=== PATIENT | female | born 1960 | race Caucasian/White ===

== ENCOUNTER 2020-08-13 16:04 | Emergency (ER) | payer MEDICAID, SELFPAY ==
[2020-08-13 16:32] VITALS: BP 154/89; PULSE 115; RESP 18; TEMP 37.6; O2SAT 95; BMI 26.4
--- NOTE | 2020-08-13 20:45 | ED.EYEPROB ---
HPI - Eye Problem General Chief complaint: Eye Problems Stated complaint: eye issue Time Seen by Provider: 08/13/20 19:57 Source: patient and family Mode of arrival: ambulatory Limitations: language barrier History of Present Illness HPI Narrative: Patient complaining of decreased vision both eyes more for the left side last few days been told that she has a cataract but has not got the surgery done also patient had some kind of surgery questionable retinal detachment of left eye few years ago also for last 3 days patient noticed slight redness of the eyes with clear clear discharge this patient has a left eye MD chief complaint: eye pain Onset (ago): day(s) Onset description: gradual Location: left eye Eye Symptoms: burning and redness Related Data Previous Rx's Medication Instructions Recorded tobramycin 2 drp OPHTHALMIC-LEFT Q4H #5 ml 08/13/20 Allergies Allergy/AdvReac Type Severity Reaction Status Date / Time Penicillins Allergy Rash Verified 08/13/20 16:32 Review of Systems Review of Systems: Constitutional : No Weight loss, No Fever, No Chills ENT/Mouth : No sore throat, No Rhinorrhea Eyes: + Eye Pain, No Swelling Cardiovascular : No Chest Pain, no palpitations Respiratory : No Cough, No Sputum, no shortness of breath Gastrointestinal : no Nausea, No Vomiting, No Diarrhea, No abdominal Pain, no black stools Genitourinary : No Dysuria, No Urinary Frequency Musculoskeletal : No joint pain, No Myalgias, No Joint Swelling Skin : No Skin Lesions, No rash Neuro : No Weakness, No Numbness, No Dizziness, No Headache Psych : No Anxiety/Panic, No Depression Heme/Lymph: No Bruising, No Lymphadenopathy Endocrine : No Polyuria, No Polydipsia All other systems reviewed and are negative PMFSH Social History Social History Smoked in Last 30 Days: No Use of substances other than those prescribed or required for medical reasons: No Any prior treatment program specific to substance use: No Advance Directives: No Advance Directives Information Provided: No Physical Exam Vital Signs: Vital Signs: Last Vital Signs Temp 99.7 F 08/13/20 16:32 Pulse 115 H 08/13/20 16:32 Resp 18 08/13/20 16:32 BP 154/89 H 08/13/20 16:32 Pulse Ox 95 08/13/20 16:32 Body Mass Index 26.4 Const: General: comfortable and no acute distress Orientation/consciousness: patient oriented x3 HENMT: Head: Yes normal to inspection Ears: hearing grossly normal bilaterally and TM's normal bilaterally General nose exam: Normal external nose present Face and sinus: Yes normal facial exam Mouth: Normal oral and palatal mucosa present Throat: Yes posterior oropharynx normal Eyes: Other: IOP 13 L eye, 15 in R eye General: appearance normal, both eyes and all related structures Alignment and Position: alignment normal Periorbital: periorbital findings normal Eyelids: Yes eyelids normal Conjunctivae: conjunctival abnormal (Injected) left Corneas: corneas normal Pupils: Equal, round and reactive pupils present EOM: EOMs intact bilaterally Direct Ophthalmoscopy: normal light reflex and other (Mature cataract bilateral left more than right ) Resp: Effort & Inspection: normal respiratory effort Auscultation: clear to auscultation bilaterally Cardio: Palpation: normal PMI Rate: regular rate Rhythm: regular rhythm Heart sounds: S1 normal heart sound present and S2 normal heart sound present Neuro: General: patient oriented x3, no focal motor deficits and CN's II-XI intact bilaterally Cranial nerves: Yes Equal, round and reactive pupils present MDM - Eye Problem MDM Narrative Medical decision making narrative: Patient with bilateral mature cataract left more than the right unable to see fundus clearly. Normal IOP patient advised to follow-up with Dr. Mae aircraft electrical systems specialist for cataract surgery Discharge Plan Discharge Clinical Impression: Conjunctivitis Qualifiers: Conjunctivitis type: acute Acute conjunctivitis type: unspecified Laterality: left Qualified Code(s): H10.32 - Unspecified acute conjunctivitis, left eye Cataract Qualifiers: Cataract type: age-related Age-related cataract type: unspecified Laterality: bilateral Qualified Code(s): H25.9 - Unspecified age-related cataract Patient Disposition: Home, Self-Care Instructions: Cataracts (ED), Conjunctivitis (ED) Additional Instructions: Use eye drops every 4 hours in left eye as advised. Follow-up with eye doctor for further evaluation including surgery for cataract Prescriptions: New tobramycin 0.3 % drops 2 drp ophthalmic-Left Q4H Qty: 5 RF: 0 Referrals: William Mae [Physician] - 3 days Print Language: Beninese
[2020-08-13] MEDS: Tobramycin Sulfate 0.3% Sol Op 5 ML BTL 2 DROP EYE-LEFT (21:23)
--- NOTE | 2020-08-13 21:25 | PC.NURSE ---
PT PRESSURE TO EYE CHECK AT BESIDE BY DR SANDERS.
== END 2020-08-13 21:18 | disposition home or self-care (01) ==
PROVIDERS: Emergency Provider Internal Medicine
DX: H10.32 Unspecified acute conjunctivitis, left eye (principal); H25.9 Unspecified age-related cataract; H57.13 Ocular pain, bilateral
CPT/HCPCS: 99283; 99284

== ENCOUNTER 2022-11-23 12:29 | Emergency (ER) | payer MEDICAID, SELFPAY ==
--- NOTE | 2022-11-23 07:15 | ECG_ITS ---
Test Reason : tachycardia Blood Pressure : / mmHG Vent. Rate : 120 BPM Atrial Rate : 120 BPM P-R Int : 160 ms QRS Dur : 070 ms QT Int : 332 ms P-R-T Axes : 065 015 073 degrees QTc Int : 469 ms Sinus tachycardia Nonspecific ST and T wave abnormality Abnormal ECG When compared to the previous EKG of Sinus tachycardia has replaced Supraventricular tachycardia Referred By: Yuriy Holloway Electronically Signed By:SHAILESH DAWKINS MD
[2022-11-23 12:40] VITALS: BP 143/107; PULSE 167; RESP 19; TEMP 36.6; O2SAT 97; BMI 27.4
--- NOTE | 2022-11-23 12:40 | ED.GENADULT ---
HPI - General Adult General Chief complaint: Arrhythmia/Palpitations Stated complaint: high blood pressure Time Seen by Provider: 11/23/22 12:53 Source: patient and family Mode of arrival: ambulatory Limitations: no limitations History of Present Illness HPI narrative: 62-year-old female with no major medical problems presents with palpitations and lightheadedness and anxiety. Symptoms started this morning when she woke. Symptoms are moderate to severe. She has never had these symptoms before. There is no clear relieving or exacerbating features. Family emerged root took blood pressure and heart rate. Blood pressure was noted to be low in her heart rate was rapid in the 160s. She denies any chest pain, shortness of breath. She denies any stimulant use or drug use. No history of cardiac dysrhythmia. She is currently not on any medications. Related Data Previous Rx's Medication Instructions Recorded tobramycin 0.3 % eye drops 2 drp ophthalmic-Left Q4H #5 mL 08/13/20 aspirin 325 mg tablet 325 mg PO DAILY #90 tabs 11/23/22 metoprolol tartrate 25 mg tablet 12.5 mg PO BID #14 tabs 11/23/22 Allergies Allergy/AdvReac Type Severity Reaction Status Date / Time Penicillins Allergy Rash Verified 11/23/22 12:39 Review of Systems Review of Systems: CONSTITUTIONAL: Denies weight loss, fever and chills. HEENT: Denies changes in vision and hearing. RESPIRATORY: Denies SOB and cough. CV: + palpitations - CP. GI: Denies abdominal pain, nausea, vomiting and diarrhea. : Denies dysuria and urinary frequency. MSK: Denies myalgia and joint pain. SKIN: Denies rash and pruritus. NEUROLOGICAL: Denies headache and syncope. PSYCHIATRIC: Denies recent changes in mood. + anxiety - depression. All other ROS are negative unless in HPI [facility] Social History Social History Advance Directives: No Physical Exam ED Vital Signs: Vital Signs - 24 hr 11/23/22 12:40 11/23/22 15:51 11/23/22 17:50 Temperature 98 F 98.3 F 98.6 F Pulse Rate 167 H 88 80 Respiratory Rate 19 16 16 Blood Pressure 143/107 H 145/91 H 152/93 H Pulse Oximetry 97 99 98 Oxygen Delivery Method Room Air Room Air Room Air BMI result Body Mass Index 27.4 GEN: Well developed, no acute distress, alert, oriented HEENT: Normocephalic, atraumatic, normal external ears, nose appears normal, no oropharyngeal edema or exudates Eyes: Normal to appearance Neck: Supple, no lymphadenopathy Respiratory: Talks in complete sentences, no respiratory distress, clear to auscultation bilaterally Cardiovascular: Regular rate and rhythm, no murmurs rubs or gallops, tachycardic Abdomen: Soft, nontender, nondistended, no guarding, no rebound Back: No CVA tenderness Extremities: No clubbing cyanosis or edema Neurologic: No focal neurologic deficits, cranial nerves 2-12 intact, strength is 5/5 bilaterally Skin: No rash Course Course Course Narrative: RME - 62 yo Latvian speaking female presents to the ER for evaluation of tachycardia, reading of 167 on home monitor. BP 120/80s at home. Patient reports heart agitation and palpitations that started this morning. HR 170 in triage, BP 140/107. No distress. Plan: to go to treatment room now. EKG, labs Reevaluation(s) Reevaluation #1: Patient received adenosine 6 mg, initially this did not work however, she subsequently went into a sinus tachycardia. This is followed by metoprolol 5 mg IV. Lab work is currently pending. Will continue to monitor patient. I expect patient will be able to discharge in follow-up with Cardiology. Reevaluation #2: Patient's heart rate remains appropriate at this time. Will run a 2nd set of cardiac enzymes to make sure that they are not dramatically increasing. If they do increase, would recommend a Cardiology consultation prior to possible discharge. I do not believe her troponin elevation is related to none stable plaque but rather a supply demand mismatch secondary to tachycardia. Patient was chest pain-free. Her only complaints are palpitations and anxiety. Time: 15:34 Medications Administered Discontinued Medications Generic Name Dose Route Start Last Admin Trade Name Chiq PRN Reason Stop Dose Admin Adenosine 6 mg 11/23/22 12:53 11/23/22 13:04 Adenosine 6 Mg/2 Ml Vial IVPUSH 11/23/22 12:54 6 mg STAT STA Administration Metoprolol Tartrate 5 mg 11/23/22 13:13 11/23/22 14:10 Metoprolol Tartrate 5 Mg/5 Ml Vial IVPUSH 11/23/22 13:14 5 mg ONCE ONE Administration Medical Decision Making Medical Decision Making [facility] Narrative: Patient presents with SVT. EKG shows a narrow sinus tachycardia. Differential includes SVT, AFib, a flutter, thyroid, electrolyte abnormality. Plan adenosine. Check laboratory results for any of the above diagnoses, observation, likely metoprolol following chemical cardioversion. There is no indication for electrical cardioversion at this time. Patient is otherwise stable. -I received sign-out from Dr. Holloway -we discussed with Cardiology the increase in troponin. Patient's heart rate in the 80s, blood pressure in the 150s systolic, patient asymptomatic, sinus rhythm. -recommendations per Cardiology: Metoprolol and aspirin and discharged home Differential Diagnosis Differential Diagnoses: The differential diagnosis associated with the presentation includes (See above) Admission/Observation Consideration of admission/observation: Escalation of care including admission/observation considered (Pending full workup.) Lab Data [facility] Lab Attestation statement: I reviewed the patient's lab results. 11/23/22 13:15 11/23/22 13:15 Labs: Lab Results 11/23/22 11/23/22 11/23/22 Range/Units 13:15 13:15 13:15 WBC 4.2 L (4.8-10.8) X10*3/uL RBC 4.46 (4.20-5.50) X10*6/uL Hgb 13.7 (12.0-16.0) g/dl Hct 41.9 (37.0-47.0) % MCV 93.9 (80.0-98.0) fL MCH 30.7 (27.0-33.0) pg MCHC 32.7 (31.0-35.0) g/dl RDW 12.2 (11.0-16.0) % Plt Count 314 (160-400) X10*3/uL MPV 9.4 (9.4-12.3) fL Immature Gran % (Auto) 0.2 (0.0-0.4) % Neut % (Auto) 51.2 (45-73) % Lymph % (Auto) 38.8 (20-40) % [place] % (Auto) 8.9 (2-11) % Eos % (Auto) 0.2 (0-4) % Baso % (Auto) 0.7 (0-2) % Lymph # (Auto) 1.6 (1.2-4.9) X10*3/uL [place] # (Auto) 0.4 (0.1-1.2) X10*3/uL Eos # (Auto) 0.0 (0.0-0.4) X10*3/uL Baso # (Auto) 0.0 (0.0-0.2) X10*3/uL Abs Immat Gran (auto) 0.01 (0.00-0.03) X10*3/uL Absolute Neuts (auto) 2.1 (2.0-8.3) x10*3/uL Absolute Nucleated RBC 0.000 (0.0-0.012) X10*3/uL Nucleated RBC % (auto) 0.0 (0.0-0.2) /100WBC Sodium 139 (135-145) mmol/L Potassium 3.4 (3.3-5.1) mmol/L Chloride 105 (96-108) mmol/L Carbon Dioxide 25 (22-29) mmol/L Anion Gap 12 (12-20) BUN 15 (9-16) mg/dL Creatinine 0.84 (0.5-1.4) mg/dL Estim Creat Clear Calc 62.0 Estimated GFR > 60 Random Glucose 123 H (60-115) mg/dL Calcium 9.8 (8.4-10.2) mg/dL Magnesium 2.2 (1.6-2.6) mg/dL Total Bilirubin 0.5 (0.0-1.0) mg/dL Direct Bilirubin 0.2 (0.0-0.5) mg/dL AST 19 (5-31) U/L ALT 21 (0-31) U/L Alkaline Phosphatase 76 (39-117) U/L Troponin I High Sens 17.2 H (<3.5-17.0) ng/L B-Natriuretic Peptide (<100) pg/mL Total Protein 8.1 H (6.5-8.0) g/dL Albumin 4.3 (3.5-5.0) g/dL TSH 0.67 (0.32-4.0) uIU/mL 11/23/22 11/23/22 Range/Units 13:15 15:58 WBC (4.8-10.8) X10*3/uL RBC (4.20-5.50) X10*6/uL Hgb (12.0-16.0) g/dl Hct (37.0-47.0) % MCV (80.0-98.0) fL MCH (27.0-33.0) pg MCHC (31.0-35.0) g/dl RDW (11.0-16.0) % Plt Count (160-400) X10*3/uL MPV (9.4-12.3) fL Immature Gran % (Auto) (0.0-0.4) % Neut % (Auto) (45-73) % Lymph % (Auto) (20-40) % [place] % (Auto) (2-11) % Eos % (Auto) (0-4) % Baso % (Auto) (0-2) % Lymph # (Auto) (1.2-4.9) X10*3/uL [place] # (Auto) (0.1-1.2) X10*3/uL Eos # (Auto) (0.0-0.4) X10*3/uL Baso # (Auto) (0.0-0.2) X10*3/uL Abs Immat Gran (auto) (0.00-0.03) X10*3/uL Absolute Neuts (auto) (2.0-8.3) x10*3/uL Absolute Nucleated RBC (0.0-0.012) X10*3/uL Nucleated RBC % (auto) (0.0-0.2) /100WBC Sodium (135-145) mmol/L Potassium (3.3-5.1) mmol/L Chloride (96-108) mmol/L Carbon Dioxide (22-29) mmol/L Anion Gap (12-20) BUN (9-16) mg/dL Creatinine (0.5-1.4) mg/dL Estim Creat Clear Calc Estimated GFR Random Glucose (60-115) mg/dL Calcium (8.4-10.2) mg/dL Magnesium (1.6-2.6) mg/dL Total Bilirubin (0.0-1.0) mg/dL Direct Bilirubin (0.0-0.5) mg/dL AST (5-31) U/L ALT (0-31) U/L Alkaline Phosphatase (39-117) U/L Troponin I High Sens 104.0 H* D (<3.5-17.0) ng/L B-Natriuretic Peptide 14 (<100) pg/mL Total Protein (6.5-8.0) g/dL Albumin (3.5-5.0) g/dL TSH (0.32-4.0) uIU/mL Independent Interpretation I performed an independent interpretation of an: EKG (SVT, 178, rate related ST depressions, no acute ST elevations.) Interpretation: Repeat EKG after adenosine reveals sinus tachycardia heart rate 120, no acute ST elevations depressions, normal intervals. Independent Historian Clinical information obtained from an independent historian. History obtained from or confirmed by: Other (family) Prescription Management I considered prescription management with: Other (cardiac meds) Critical Care Time Critical Care Time Critical Care Time: Yes Total Critical Care Time: 40 Attestation: Approximately 40 minutes of critical care time spent in terms of direct patient care, re-evaluation, consultation with family, review of medical data, medical management all outside of any procedures. Discharge Plan Discharge Clinical Impression: Supraventricular tachycardia Patient Disposition: Home, Self-Care Instructions: Supraventricular Tachycardia (ED) Prescriptions: New metoprolol tartrate 25 mg tablet 12.5 mg PO BID Qty: 14 0RF aspirin 325 mg tablet 325 mg PO DAILY Qty: 90 0RF No Action tobramycin 0.3 % drops 2 drp ophthalmic-Left Q4H Qty: 5 0RF Referrals: Godwin Harry MD [Physician] -
--- NOTE | 2022-11-23 12:42 | ECG_ITS ---
Test Reason : SVT Blood Pressure : / mmHG Vent. Rate : 178 BPM Atrial Rate : 000 BPM P-R Int : 000 ms QRS Dur : 074 ms QT Int : 260 ms P-R-T Axes : 000 016 220 degrees QTc Int : [address] depression, consider subendocardial injury Nonspecific T wave abnormality Abnormal ECG No previous ECGs available Referred By: Kathie Navas Electronically Signed By:SHAILESH DAWKINS MD
[2022-11-23] MEDS: Adenosine 6 MG/2 ML VIAL IVPUSH (13:04)
--- NOTE | 2022-11-23 13:11 | PC.NURSE ---
Pt HR at 170, Adenosine administered and HR decreased to 114.
--- NOTE | 2022-11-23 13:12 | PC.NURSE ---
Pt currently in sinus tach.
[2022-11-23] MEDS: Metoprolol Tartrate 5 MG/5 ML VIAL IVPUSH (14:10)
[2022-11-23 14:34] LABS: MANUAL DIFF FLAG NO
[2022-11-23 14:40] LABS: Basophils Percent Auto 0.7 % (0-2); Eosinophils Percent Auto 0.2 % (0-4); Hematocrit 41.9 % (37.0-47.0); Hemoglobin 13.7 g/dl (12.0-16.0); Imm Gran Abs Auto 0.01 X10*3/uL (0.00-0.03); Imm Gran Pct Auto 0.2 % (0.0-0.4); Lymphocytes Absolute Auto 1.6 X10*3/uL (1.2-4.9); Lymphocytes Percent Auto 38.8 % (20-40); Mean Corpuscular HGB Conc 32.7 g/dl (31.0-35.0); Mean Corpuscular Hemoglobin 30.7 pg (27.0-33.0); Mean Corpuscular Volume 93.9 fL (80.0-98.0); Mean Platelet Volume 9.4 fL (9.4-12.3); Monocytes Absolute Auto 0.4 X10*3/uL (0.1-1.2); Monocytes Percent Auto 8.9 % (2-11); Neutrophils Absolute Auto 2.1 x10*3/uL (2.0-8.3); Neutrophils Percent Auto 51.2 % (45-73); Platelet Count 314 X10*3/uL (160-400); Red Blood Count 4.46 X10*6/uL (4.20-5.50); Red Cell Distribution Width 12.2 % (11.0-16.0); White Blood Count 4.2 X10*3/uL (4.8-10.8)
[2022-11-23 14:52] LABS: Troponin-I High Sensitivity 17.2 ng/L (<3.5-17.0)
[2022-11-23 15:00] LABS: Alanine Aminotransferase 21 U/L (0-31); Albumin Level 4.3 g/dL (3.5-5.0); Alkaline Phosphatase 76 U/L (39-117); Anion Gap 12 (12-20); Aspartate Amino Transferase 19 U/L (5-31); Bilirubin Direct 0.2 mg/dL (0.0-0.5); Bilirubin Total 0.5 mg/dL (0.0-1.0); Blood Urea Nitrogen 15 mg/dL (9-16); Calcium 9.8 mg/dL (8.4-10.2); Carbon Dioxide 25 mmol/L (22-29); Chloride 105 mmol/L (96-108); Estimated Glomerular Filt Rate > 60; Glucose Random 123 mg/dL (60-115); Magnesium 2.2 mg/dL (1.6-2.6); Potassium 3.4 mmol/L (3.3-5.1); Sodium 139 mmol/L (135-145); Total Protein 8.1 g/dL (6.5-8.0)
[2022-11-23 15:10] LABS: B Type Natriuretic Peptide 14 pg/mL (<100)
[2022-11-23 15:13] LABS: TSH reflex Free T4 0.67 uIU/mL (0.32-4.0)
[2022-11-23 15:51] VITALS: BP 145/91; PULSE 88; RESP 16; TEMP 36.8; O2SAT 99
--- NOTE | 2022-11-23 15:59 | MHC.EDTECH ---
THIS PCT ASSUMED CARE OF PATIENT AT 1515 PM ,VITALS SIGN TAKEN ,REPEATED BLOOD DRAWN AND SENT TO LAB .
[2022-11-23 17:50] VITALS: BP 152/93; PULSE 80; RESP 16; TEMP 37; O2SAT 98
[2022-11-23 18:39] LABS: INTERNATIONAL NORM RATIO 0.8 (0.9-1.1); Prothrombin Time 10.3 SEC (11.1-13.3)
[2022-11-23 18:42] LABS: Partial Thromboplastin Time 29.9 SEC (26.0-36.4)
== END 2022-11-23 18:23 | disposition home or self-care (01) ==
PROVIDERS: Physician Assistant; Emergency Provider Emergency Medicine
DX: I47.1 Supraventricular tachycardia (principal); R00.2 Palpitations
CPT/HCPCS: 36415; 80048; 80076; 83735; 83880; 84443; 84484; 85025; 85610; 85730; 93005; 96374; 96375; 99284; J0153

== ENCOUNTER → 2022-11-23 12:42 | Outpatient (BNV) | payer MEDICAID, SELFPAY | PROVIDERS: Emergency Provider Emergency Medicine; Visit Provider Internal Medicine Cardiovascular Disease | DX: I47.1 Supraventricular tachycardia (principal) | CPT/HCPCS: 93010 ==

== ENCOUNTER 2023-03-23 13:34 | Emergency (ER) | payer MEDICAID, SELFPAY ==
[2023-03-23] VITALS (8 sets, daily range): BP systolic 122–141; BP diastolic 75–90; PULSE 75–140; RESP 16–20; TEMP 36.5–36.9; O2SAT 96–100; BMI 34.7
--- NOTE | 2023-03-23 | ECG_ITS ---
Test Reason : PALPATION Blood Pressure : / mmHG Vent. Rate : 097 BPM Atrial Rate : 097 BPM P-R Int : 160 ms QRS Dur : 066 ms QT Int : 156 ms P-R-T Axes : 045 011 -83 degrees QTc Int : 198 ms Normal sinus rhythm Nonspecific T wave abnormality Abnormal ECG When compared with ECG of 23-MAR-2023 13:52, No significant change was found Referred By: Yadira Ricks Electronically Signed By:DAVID CHRISTINE MD
--- NOTE | 2023-03-23 13:36 | ED.GENADULT ---
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 Patient declined any CP or SOB. Patient had similar presentation was diagnosed with SVT, patient was discharged home on metoprolol and follow up with cardiac technologist patient did not follow-up with a cardiac technologist and ran out of the metoprolol for 2 weeks. Patient declined any recent travel, no prolonged immobilization, no lower extremity swelling Related Data Previous Rx's Medication Instructions Recorded tobramycin 0.3 % eye drops 2 drp ophthalmic-Left Q4H #5 mL 08/13/20 aspirin 325 mg tablet 325 mg PO DAILY #90 tabs 11/23/22 metoprolol tartrate 25 mg tablet 12.5 mg (1/2 x 25 mg) PO BID #14 11/23/22 tabs metoprolol tartrate 25 mg tablet 12.5 mg (1/2 x 25 mg) PO DAILY #20 03/23/23 tabs Allergies Allergy/AdvReac Type Severity Reaction Status Date / Time Penicillins Allergy Rash Verified 03/23/23 13:40 Review of Systems Review of Systems: all other systems are reviewed and are negative Constitutional: Reports as per HPI and Reports no additional constitutional complaints Eyes: Reports as per HPI and Reports no additional eye complaints Reports system reviewed and no additional complaints, except as documented Cardiovascular: Reports as per HPI and Reports no additional cardiovascular complaints Respiratory: Reports as per HPI and Reports no additional respiratory complaints Gastrointestinal: Reports as per HPI and Reports no additional gastrointestinal complaints Genitourinary: Reports no additional female genitourinary complaints Musculoskeletal: Reports no additional musculoskeletal complaints Skin/Breast: Reports system reviewed and no additional complaints, except as docu Psychiatric: Reports no additional psychiatric complaints Endocrine: Reports no additional endocrine complaints Hematologic/Lymphatic: Reports no additional hematologic/lymphatic complaints Allergic/Immunologic: Reports no additional allergic/immunologic complaints Reports system reviewed and no additional complaints, except as documented and Reports Abnormal speech present [facility] Social History Smoked in Last 30 Days: No Use of substances other than those prescribed or required for medical reasons: No Advance Directives: No Advance Directives Information Provided: Yes Physical Exam ED Vital Signs: Vital Signs - 24 hr 03/23/23 13:35 03/23/23 13:59 03/23/23 14:33 Temperature 98.2 F Pulse Rate 140 H 106 H 98 Respiratory Rate 20 16 18 Blood Pressure 141/90 H 132/81 125/79 Pulse Oximetry 96 96 96 Oxygen Delivery Method Room Air Room Air Room Air 03/23/23 15:06 Temperature 98.4 F Pulse Rate 91 Respiratory Rate 18 Blood Pressure 130/75 Pulse Oximetry 98 Oxygen Delivery Method Room Air BMI result Body Mass Index 34.7 Vital signs have been reviewed and appear to be correct. Blood pressure elevated. Heart rate elevated. Respiratory rate normal. Temperature normal. Oxygen saturation normal. Appearance: Alert. Oriented X3. No acute distress. Head: Normal external exam. Normocephalic. Atraumatic. No Beck signs noted. No raccoon eyes noted Eyes: PERRLA. EOMI. Conjunctiva and sclera normal. Eyelids normal. ENT: TM's Normal. Pharynx normal. Uvula midline. Moist mucous membranes. No trismus noted. No drooling noted. No muffled voice noted. Neck: Normal inspection. Neck supple. FROM. No adenopathy. Thyroid Normal. No meningeal signs. No neck mass noted. CVS: Normal heart rate and rhythm. Heart sound normal. No murmurs noted. Pulses normal throughout. Respiratory: No respiratory distress. Painless inspiration. Breath sounds normal. No wheezes/rales/rhonchi noted. Chest nontender. No accessory muscle usage noted or decreased air movement noted. Abdomen: Soft and nontender. Bowel sounds normal in all 4 quadrants. No distention noted. No organomegaly noted. No visible injury noted. Back: No CVA tenderness. Full range of motion noted. Skin: Skin warm and dry. Normal skin color. Normal skin turgor. No rashes/lesions/lacerations noted. Extremities: No lower extremity edema. Extremities exhibit normal range of motion. Extremities nontender. Neuro: Oriented X 3. Cranial nerve exam: II-XII are grossly intact No motor deficit. No sensory deficit. Reflexes normal. Course Course Course Narrative: This is a rapid medical exam: Additional HPI, ROS, PE not included below will be deferred to primary provider. Patient is a 63-year-old female presenting to the ED with increased heart rate, family states HR was 120's at home, report BP was normal. HR 138 in triage. Patient states she is not on any medications to control her HR at this time. Patient complaints of palpitations since this morning, denies dizziness or dyspnea. Patient was seen here in October for SVT, discharged home on metoprolol and referral to cardiology. Patient has not seen a cardiac technologist yet. Plan: EKG, labs Reevaluation(s) Reevaluation #1: is 63-year-old female came in for evaluation of palpitation found to have a sinus tachycardia patient had similar presentation in the past patient was sent home on metoprolol to control her rhythm patient ran out of the medication for the past weeks woke up this morning with palpitation heart rate was in the 130s and now heart rate is 97. Patient is showing a slight elevation of troponin will check 3 hours apart troponin make sure no delta change. The case sign-out to Dr. River to check 2nd troponin and dispo accordingly. Time: 15:16 Medical Decision Making Differential Diagnosis Differential Diagnoses: The differential diagnosis associated with the presentation includes ( Dysrhythmia, electrolyte abnormality, thyroid disorder, severe anemia.) Admission/Observation Consideration of admission/observation: Escalation of care including admission/observation considered Lab Data MDM Lab Attestation statement: I reviewed the patient's lab results. 03/23/23 13:54 03/23/23 13:54 Labs: Lab Results 03/23/23 Range/Units 13:54 WBC 4.6 L (4.8-10.8) X10*3/uL RBC 4.10 L (4.20-5.50) X10*6/uL Hgb 12.7 (12.0-16.0) g/dl Hct 38.0 (37.0-47.0) % MCV 92.7 (80.0-98.0) fL MCH 31.0 (27.0-33.0) pg MCHC 33.4 (31.0-35.0) g/dl RDW 12.6 (11.0-16.0) % Plt Count 286 (160-400) X10*3/uL MPV 8.6 L (9.4-12.3) fL Immature Gran % (Auto) 0.4 (0.0-0.4) % Neut % (Auto) 50.5 (45-73) % Lymph % (Auto) 37.6 (20-40) % [place] % (Auto) 10.4 (2-11) % Eos % (Auto) 0.2 (0-4) % Baso % (Auto) 0.9 (0-2) % Lymph # (Auto) 1.7 (1.2-4.9) X10*3/uL [place] # (Auto) 0.5 (0.1-1.2) X10*3/uL Eos # (Auto) 0.0 (0.0-0.4) X10*3/uL Baso # (Auto) 0.0 (0.0-0.2) X10*3/uL Abs Immat Gran (auto) 0.02 (0.00-0.03) X10*3/uL Absolute Neuts (auto) 2.3 (2.0-8.3) x10*3/uL Absolute Nucleated RBC 0.000 (0.0-0.012) X10*3/uL Nucleated RBC % (auto) 0.0 (0.0-0.2) /100WBC PT 11.2 (11.1-13.3) SEC INR 0.9 (0.9-1.1) Sodium 142 (135-145) mmol/L Potassium 3.2 L (3.3-5.1) mmol/L Chloride 107 (96-108) mmol/L Carbon Dioxide 26 (22-29) mmol/L Anion Gap 12 (12-20) BUN 13 (9-16) mg/dL Creatinine 0.90 (0.5-1.4) mg/dL Estim Creat Clear Calc 49.7 Estimated GFR > 60 Random Glucose 129 H (60-115) mg/dL Calcium 10.2 (8.4-10.2) mg/dL Total Bilirubin 0.4 (0.0-1.0) mg/dL AST 21 (5-31) U/L ALT 21 (0-31) U/L Alkaline Phosphatase 80 (39-117) U/L Troponin I High Sens 31.4 H D (<3.5-17.0) ng/L Total Protein 7.8 (6.5-8.0) g/dL Albumin 4.2 (3.5-5.0) g/dL TSH 0.76 (0.32-4.0) uIU/mL Free T4 0.92 (0.71-1.85) ng/dL Independent Interpretation I performed an independent interpretation of an: EKG ( normal sinus rhythm at 97 beats per minutes, normal intervals, nonspecific ST - T -changes.) Discharge Plan Discharge Clinical Impression: Palpitations, Sinus tachycardia, Acute hypokalemia Patient Disposition: Still a Patient Instructions: Heart Palpitations (ED) Prescriptions: New metoprolol tartrate 25 mg tablet 12.5 mg PO DAILY Qty: 20 0RF No Action tobramycin 0.3 % drops 2 drp ophthalmic-Left Q4H Qty: 5 0RF metoprolol tartrate 25 mg tablet 12.5 mg PO BID Qty: 14 0RF aspirin 325 mg tablet 325 mg PO DAILY Qty: 90 0RF Referrals: Kevin Garcia MD [Physician] -
--- NOTE | 2023-03-23 13:38 | ECG_ITS ---
Test Reason : SVT PALPATATIONS Blood Pressure : / mmHG Vent. Rate : 114 BPM Atrial Rate : 114 BPM P-R Int : 164 ms QRS Dur : 070 ms QT Int : 290 ms P-R-T Axes : 057 016 231 degrees QTc Int : 399 ms Sinus tachycardia Possible Left atrial enlargement Nonspecific ST and T wave abnormality Abnormal ECG When compared with ECG of 23-NOV-2022 13:09, Nonspecific T wave abnormality, worse in Inferior leads Nonspecific T wave abnormality, worse in Anterolateral leads Referred By: Katrin Wilkerson Electronically Signed By:DAVID CHRISTINE MD
[2023-03-23 14:00] LABS: Basophils Percent Auto 0.9 % (0-2); Eosinophils Percent Auto 0.2 % (0-4); Hemoglobin 12.7 g/dl (12.0-16.0); Imm Gran Abs Auto 0.02 X10*3/uL (0.00-0.03); Imm Gran Pct Auto 0.4 % (0.0-0.4); Lymphocytes Absolute Auto 1.7 X10*3/uL (1.2-4.9); Lymphocytes Percent Auto 37.6 % (20-40); MANUAL DIFF FLAG NO; Mean Corpuscular HGB Conc 33.4 g/dl (31.0-35.0); Mean Corpuscular Volume 92.7 fL (80.0-98.0); Mean Platelet Volume 8.6 fL (9.4-12.3); Monocytes Absolute Auto 0.5 X10*3/uL (0.1-1.2); Monocytes Percent Auto 10.4 % (2-11); Neutrophils Absolute Auto 2.3 x10*3/uL (2.0-8.3); Neutrophils Percent Auto 50.5 % (45-73); Platelet Count 286 X10*3/uL (160-400); Red Cell Distribution Width 12.6 % (11.0-16.0); White Blood Count 4.6 X10*3/uL (4.8-10.8)
[2023-03-23 14:09] LABS: INTERNATIONAL NORM RATIO 0.9 (0.9-1.1); Prothrombin Time 11.2 SEC (11.1-13.3)
[2023-03-23 14:23] LABS: Alanine Aminotransferase 21 U/L (0-31); Albumin Level 4.2 g/dL (3.5-5.0); Alkaline Phosphatase 80 U/L (39-117); Anion Gap 12 (12-20); Aspartate Amino Transferase 21 U/L (5-31); Bilirubin Total 0.4 mg/dL (0.0-1.0); Blood Urea Nitrogen 13 mg/dL (9-16); Calcium 10.2 mg/dL (8.4-10.2); Carbon Dioxide 26 mmol/L (22-29); Chloride 107 mmol/L (96-108); Creatinine Clr Calc Pharmacy 49.7; Estimated Glomerular Filt Rate > 60; Glucose Random 129 mg/dL (60-115); Potassium 3.2 mmol/L (3.3-5.1); Sodium 142 mmol/L (135-145); Total Protein 7.8 g/dL (6.5-8.0); Troponin-I High Sensitivity 31.4 ng/L (<3.5-17.0)
[2023-03-23 14:37] LABS: Free T4 (Free Thyroxine) 0.92 ng/dL (0.71-1.85); Thyroid Stimulating Hormone 0.76 uIU/mL (0.32-4.0)
--- NOTE | 2023-03-23 15:07 | MHC.EDTECH ---
This pct just assumed care of patient ,repeated ekg taken and was read by Provider ,vitals taken ,pt is hooked up to residential monitor ,Call kruse within Pt reach .
[2023-03-23] MEDS: Potassium Chloride Packet 20 MEQ PACKET 40 MEQ PO (15:18)
[2023-03-23] MEDS: Metoprolol Tartrate 12.5 MG HALFTAB PO (15:18)
[2023-03-23] MEDS: Potassium Chloride/H20 10 MEQ/100 ML PIGGYBACK 100 MEQ IV (15:18)
--- NOTE | 2023-03-23 16:24 | PC.NURSE ---
pt medicated per MAR, resting quietly pending repeat trop, vss, pending repeat trop at 1700.
--- NOTE | 2023-03-23 17:26 | MHC.EDTECH ---
Patient repeated trop drawn and sent to lab ,vitals taken ,pt comfortable ,no apparent distress noted .
[2023-03-23 17:53] LABS: Troponin-I High Sensitivity 48.5 ng/L (<3.5-17.0)
== END 2023-03-23 20:02 | disposition home or self-care (01) ==
PROVIDERS: Emergency Medicine; Registered Nurse Emergency; Emergency Provider Emergency Medicine Emergency Medical Services
DX: R00.2 Palpitations (principal); R00.0 Tachycardia, unspecified; E87.6 Hypokalemia; Z79.82 Long term (current) use of aspirin; Z79.899 Other long term (current) drug therapy
CPT/HCPCS: 36415; 80053; 84439; 84443; 84484; 85025; 85610; 93005; 96365; 99284; 99285; J3480

== ENCOUNTER 2023-04-03 14:06 | Outpatient (AMB) | payer MEDICAID, SELFPAY ==
[2023-04-03 14:11] VITALS: BP 140/82; PULSE 97; BMI 34.5
--- NOTE | 2023-04-03 14:11 | MHC.OFFVIS ---
Intake Vital Signs 04/03/23 14:11 Height 4 ft 8 in Weight 153 lb 14.122 oz BMI 34.5 BP 140/82 H Blood Pressure Location Lt brachial Position Sitting Pulse 97 Pulse Source Pulse Oximeter Intake Visit Reasons: [facility] [place] f/u Manager Heart: Manager Heart Present Allergies Penicillins Allergy (Verified 04/03/23 14:14) Rash Medication List - Last Reconciled 04/03/23 by FLORA ClearyC aspirin 325 mg PO DAILY metoprolol tartrate 12.5 mg (1/2 x 25 mg) PO DAILY HPI [facility] f/u HPI Details Pippa is a 63-year-old female with no significant past medical history who was seen in the emergency room on 2 occasions in the last few months with heart palpitations. EKG in October did show what looks like SVT and she was initially treated with adenosine followed by metoprolol which slowed her rate to normal sinus rhythm. She was sent home with low-dose metoprolol. Repeat ER visit last week for palpitations with EKG showing sinus tachycardia. She had run out of her metoprolol which was then restarted. She was referred to Cardiology for follow-up. Today she presents for cardiology consultation. She denies any known cardiac history besides recent heart palpitations. She has no history of hypertension, hyperlipidemia, diabetes. She does not get chest discomfort at rest or with activity. No shortness of breath, presyncope, syncope, falls. No PND, orthopnea or edema. She has good activity tolerance. She usually drinks tea in the evening. She has been taking her medications as directed. Her is present and tells me they moved here from [place] approximately 3 years ago. He is assisting with [place]ian translation at their request. Permit was signed. He states that his has been very healthy her whole life. She does not do any routine exercise. Rare alcohol use. Lifelong nonsmoker. No known family history of heart disease. [facility] Social History Alcohol intake: current Alcohol intake frequency: holidays/special occasions only Patient Tobacco Use Status: Never used Tobacco Review of Systems Const All systems reviewed & are unremarkable except as noted in HPI and below ENT Denies dizziness Card Denies chest pain, Denies chest pain at rest, Denies chest pain with activity, Denies rapid heart rate, Denies pedal edema, Denies edema, Denies leg edema, Denies lightheadedness, Denies palpitations, Denies dyspnea, Denies dyspnea on exertion and Denies orthopnea Resp Denies cough, Denies dyspnea and Denies dyspnea on exertion GI Denies hematochezia and Denies change in stool character Musc Denies abnormal gait, Denies limited range of motion, Denies muscle cramps, Denies muscle weakness, Denies numbness, Denies radiating pain into limb, Denies stiffness and Denies tingling Neuro Denies abnormal gait, Denies dizziness, Denies numbness and Denies tingling Endo Denies palpitations Physical Exam Vital Signs: Last Vital Signs Pulse 97 04/03/23 14:11 BP 140/82 H 04/03/23 14:11 BMI result Body Mass Index 34.5 Const General: cooperative, healthy appearing, comfortable and no acute distress Orientation/consciousness: patient oriented x3 Neck Neck: Yes normal visual inspection and Yes no JVD Resp Effort & Inspection: normal respiratory effort Auscultation: clear to auscultation bilaterally, no crackles, no rales, no rhonchi and no wheezes Cardio Jugular venous distension: no JVD Rate: regular rate Rhythm: regular rhythm Heart sounds: S1 normal heart sound present, S2 normal heart sound present, no murmurs and no rubs Neuro General: patient oriented x3 Extrem General: Yes normal to inspection, No no pedal edema and No calf tenderness Psych Appearance: grossly normal Mental Status: mental status grossly normal Speech and movement: Normal speech and movement present Assessment & Plan Assessment & Plan (1) Supraventricular tachycardia: Code(s): I47.1 - Supraventricular tachycardia Plan: EKG from 11/23/2022 reviewed, appears to be supraventricular tachycardia, rate 178. Patient did receive adenosine that day followed by dose of metoprolol with improvement in heart rate back to normal range. At that time she was started on metoprolol tartrate 12.5 mg daily. She had recurrent heart palpitations on 03/23/2023 however not as severe. She went to the ER an EKG shows sinus tachycardia. She was restarted on metoprolol. Today she reports that she is not getting heart palpitations on the medication. She has no associated symptoms with palpitation except fast beating of her heart. She drinks typically 1 caffeinated beverage a day. Will have her continue metoprolol at current dose. Metoprolol can be increased if she has recurrent symptoms. Will order Holter monitor to evaluate for arrhythmia, recurrent SVT. Will order echocardiogram to assess for structural heart disease. Will order exercise stress test to assess for any signs of ischemia or exercise-induced arrhythmia. Reviewed good hydration, activity as tolerated. Vagal maneuvers reviewed. Cardiology follow-up in 6-8 weeks, sooner if needed. (2) Palpitations: Code(s): R00.2 - Palpitations Plan: As above Orders: Orders ECG 3 day holter monitor Today I47.1 - Supraventricular tachycardia, R00.2 - Palpitations CA echo transthoracic complete Today I47.1 - Supraventricular tachycardia, R00.2 - Palpitations CA stress test Today I47.1 - Supraventricular tachycardia Patient Instructions: Time spent with chart review, documentation, interview, assessment Coding Level of Care Code New Pt Level 3 (27337) Diagnoses Supraventricular tachycardia I47.1 Palpitations R00.2 Time Spent (min) 30
== END 2023-04-03 14:52 | disposition home or self-care (01) ==
PROVIDERS: Visit Provider Nurse Practitioner Family
DX: I47.1 Supraventricular tachycardia (principal); R00.2 Palpitations
CPT/HCPCS: 99203

== ENCOUNTER → 2023-04-03 14:06 | Outpatient (BNVA) | payer MEDICAID, SELFPAY | PROVIDERS: Visit Provider Nurse Practitioner Family | DX: I47.10 Supraventricular tachycardia, unspecified (principal); R00.2 Palpitations; Z79.899 Other long term (current) drug therapy | CPT/HCPCS: 99212 ==

== ENCOUNTER 2023-06-10 08:26 | Outpatient (REF) | payer MEDICAID, SELFPAY ==
--- NOTE | ~2023-06-10 | XR_ITS ---
EXAMINATION: XR CHEST CLINICAL INFORMATION: Shortness of breath, low back pain with bilateral sciatica. COMPARISON: None available. TECHNIQUE: 2 views of the chest were obtained. FINDINGS: Mild degenerative changes in the thoracic spine. No pleural effusion. Cardiac silhouette within normal limits in size. There is no gross pneumothorax. Possible left apical [address] scan of the chest without intravenous contrast is recommended for further evaluation. XR/XR chest 2V IMPRESSION: Possible left apical [address] scan of the chest without intravenous contrast is recommended for further evaluation. This study was presented today 06/12/2023 for interpretation. PSA staff will provide results to referring provider at this time.
--- NOTE | ~2023-06-10 | XR_ITS ---
EXAMINATION: XR LUMBOSACRAL SPINE CLINICAL INFORMATION: Shortness of breath, lower back pain with bilateral sciatica. COMPARISON: None available. TECHNIQUE: Three views of the lumbosacral spine. FINDINGS: Facet arthritis in the mid to lower lumbar spine. Moderate degenerative changes in the bilateral sacroiliac joints. Multilevel lumbar spondylosis with advanced degenerative changes and loss of disc space height most notable at L4-L5. Moderate loss of disc space height at L3-L4 and L5-S1. Minimal retrolisthesis of L3 on L4, grade 1. XR/XR lumbar spine 2-3V IMPRESSION: Multilevel lumbar spondylosis with advanced degenerative changes and loss of disc space height most notable at L4-L5.
[2023-06-10 08:59] LABS: MANUAL DIFF FLAG NO
[2023-06-10 09:16] LABS: Basophils Percent Auto 1.2 % (0-2); Eosinophils Percent Auto 1.2 % (0-4); Hematocrit 38.5 % (37.0-47.0); Imm Gran Abs Auto 0.01 X10*3/uL (0.00-0.03); Imm Gran Pct Auto 0.3 % (0.0-0.4); Lymphocytes Absolute Auto 1.8 X10*3/uL (1.2-4.9); Lymphocytes Percent Auto 52.5 % (20-40); Mean Corpuscular HGB Conc 33.8 g/dl (31.0-35.0); Mean Corpuscular Hemoglobin 31.1 pg (27.0-33.0); Mean Corpuscular Volume 92.1 fL (80.0-98.0); Monocytes Absolute Auto 0.4 X10*3/uL (0.1-1.2); Monocytes Percent Auto 11.7 % (2-11); Neutrophils Absolute Auto 1.1 x10*3/uL (2.0-8.3); Neutrophils Percent Auto 33.1 % (45-73); Platelet Count 264 X10*3/uL (160-400); Red Blood Count 4.18 X10*6/uL (4.20-5.50); Red Cell Distribution Width 12.4 % (11.0-16.0); White Blood Count 3.4 X10*3/uL (4.8-10.8)
[2023-06-10 10:34] LABS: Alanine Aminotransferase 20 U/L (0-31); Albumin Level 4.2 g/dL (3.5-5.0); Alkaline Phosphatase 74 U/L (39-117); Anion Gap 14 (12-20); Aspartate Amino Transferase 19 U/L (5-31); Bilirubin Total 0.5 mg/dL (0.0-1.0); Blood Urea Nitrogen 18 mg/dL (9-16); Calcium 9.9 mg/dL (8.4-10.2); Carbon Dioxide 27 mmol/L (22-29); Chloride 103 mmol/L (96-108); Cholesterol 319 mg/dL (<200); Estimated Glomerular Filt Rate > 60; Glucose Fasting 97 mg/dL (60-99); HDL Cholesterol 61 mg/dL (>40); LDL Cholesterol Calculated 221 mg/dL (<100); Sodium 140 mmol/L (135-145); Total Protein 7.9 g/dL (6.5-8.0); Triglycerides 189 mg/dL (<150)
== END 2023-06-10 08:27 | disposition home or self-care (01) ==
LOC: HO.XRAY 08:26
PROVIDERS: PCP Internal Medicine; Visit Provider Internal Medicine
DX: Z00.00 Encounter for general adult medical examination without abnormal findings (principal); M54.9 Dorsalgia, unspecified; R06.02 Shortness of breath
CPT/HCPCS: 36415; 71046; 72100; 80053; 80061; 85025

== ENCOUNTER 2023-07-17 07:29 | Outpatient (REF) | payer MEDICAID, SELFPAY ==
--- NOTE | ~2023-07-17 | CT_ITS ---
EXAMINATION: CT CHEST WITHOUT CONTRAST CLINICAL INFORMATION: Lung nodule follow-up COMPARISON: Chest x-ray June 10.4 TECHNIQUE: Multidetector volumetric CT imaging of the chest was done. Axial MIP volume rendering provided. Sagittal and coronal reformatted images were obtained. This CT examination was performed using dose optimization techniques as appropriate, variously including the following: *Automated exposure control *Adjustment of mA and/or kV according to patient size (this includes techniques or standardized protocols for targeted exams where dose is matched to indication/reason for exam; i.e. extremities or head) *Use of iterative reconstruction technique DLP: 130 mGy-cm FINDINGS: Central airways are patent. Lungs are well aerated. There is no lobar consolidation. No pleural effusion or pneumothorax. No suspicious pulmonary nodules. The heart is normal in size. There is no pericardial effusion. Coronary artery calcifications are noted. Normal caliber thoracic aorta. No gross mediastinal or hilar lymphadenopathy appreciated on today's noncontrast imaging. No pathologically enlarged axillary lymph nodes. Visualized portions of the upper abdomen are grossly unremarkable. Mild diffuse degenerative changes of the spine. CT/CT chest wo IV con IMPRESSION: No suspicious pulmonary nodules. Fleischner guidelines were followed.
== END 2023-07-17 07:30 | disposition home or self-care (01) ==
LOC: HO.CT 07:29
PROVIDERS: PCP Internal Medicine; Visit Provider Internal Medicine
DX: R91.1 Solitary pulmonary nodule (principal)
CPT/HCPCS: 71250

== ENCOUNTER 2024-05-24 17:01 | Emergency (ER) | payer MEDICAID, SELFPAY ==
--- NOTE | ~2024-05-24 | CT_ITS ---
CLINICAL HISTORY: Dizziness CT head without contrast Comparison: None Findings: No intra-axial mass, midline shift, hydrocephalus, or acute hemorrhage. No significant atrophy-like change or white matter disease. There is no sinus or mastoid fluid. The orbits are unremarkable. No skull fracture. IMPRESSION: 1. No acute intracranial findings. This document has been electronically signed by: Himanshu Delgado MD on 05/24/2024 18:08:17
[2024-05-24 17:20] VITALS: BP 166/89; PULSE 106; RESP 18; TEMP 36.2; O2SAT 100; BMI 26.2
[2024-05-24 17:55] LABS: MANUAL DIFF FLAG NO
[2024-05-24 18:01] LABS: Basophils Percent Auto 0.9 % (0-2); Eosinophils Percent Auto 0.4 % (0-4); Hemoglobin 12.7 g/dl (12.0-16.0); Imm Gran Abs Auto 0.01 X10*3/uL (0.00-0.03); Imm Gran Pct Auto 0.2 % (0.0-0.4); Lymphocytes Absolute Auto 2.3 X10*3/uL (1.2-4.9); Lymphocytes Percent Auto 50.9 % (20-40); Mean Corpuscular HGB Conc 34.3 g/dl (31.0-35.0); Mean Corpuscular Hemoglobin 30.9 pg (27.0-33.0); Mean Platelet Volume 8.8 fL (9.4-12.3); Monocytes Absolute Auto 0.4 X10*3/uL (0.1-1.2); Monocytes Percent Auto 9.1 % (2-11); Neutrophils Absolute Auto 1.7 x10*3/uL (2.0-8.3); Neutrophils Percent Auto 38.5 % (45-73); Platelet Count 265 X10*3/uL (160-400); Red Blood Count 4.11 X10*6/uL (4.20-5.50); Red Cell Distribution Width 12.1 % (11.0-16.0); White Blood Count 4.5 X10*3/uL (4.8-10.8)
[2024-05-24 18:22] LABS: Alanine Aminotransferase 27 U/L (0-31); Albumin Level 4.5 g/dL (3.5-5.0); Anion Gap 13 (12-20); Aspartate Amino Transferase 26 U/L (5-31); Bilirubin Total 0.5 mg/dL (0.0-1.0); Blood Urea Nitrogen 12 mg/dL (9-16); Calcium 10.4 mg/dL (8.4-10.2); Carbon Dioxide 24 mmol/L (22-29); Chloride 107 mmol/L (96-108); Creatinine Clr Calc Pharmacy 66.1; Estimated Glomerular Filt Rate > 60; Glucose Random 101 mg/dL (60-115); Sodium 140 mmol/L (135-145); Total Protein 8.4 g/dL (6.5-8.0)
[2024-05-24 18:44] LABS: Alkaline Phosphatase 76 U/L (39-117)
[2024-05-24 22:19] VITALS: BP 153/88; PULSE 105; RESP 17; TEMP 36.6; O2SAT 98
[2024-05-24 22:21] VITALS: BP 158/92; PULSE 99
[2024-05-24 22:22] VITALS: BP 151/92; PULSE 109
[2024-05-24 22:23] VITALS: BP 131/93; PULSE 113
--- NOTE | 2024-05-24 23:11 | ED_ITS ---
HPI - General Adult General Chief complaint: Dizziness Stated complaint: lft side face pain/feels dizzy sometimes Time Seen by Provider: 05/24/24 23:03 Source: patient Mode of arrival: ambulatory Limitations: no limitations History of Present Illness ED Provider: Dr. Sangeeta Joseph HPI narrative: Home complaining of 3-4 days feeling unsteady when walking intermittently. Patient states that she has left ear discomfort, feels like something is crawling in her ear. Patient denies ear pain, denies discharge. When I asked to the patient with dizziness means to her, patient states that she is feels a bit unstable walk-in, denies room spinning or cells spinning, denies lightheadedness. Patient states that at this time, patient has no discomfort or dizziness Related Data Previous Rx's ?Medication ?Instructions ?Recorded aspirin 325 mg tablet 325 mg PO DAILY #90 tabs 11/23/22 metoprolol tartrate 25 mg tablet 12.5 mg (1/2 x 25 mg) PO DAILY #30 04/26/23 tabs acetic acid 2 % ear solution 3 drp otic (ear) left Q6H #15 mL 05/24/24 meclizine 50 mg tablet 50 mg PO BID PRN dizziness #10 tabs 05/24/24 Allergies Allergy/AdvReac Type Severity Reaction Status Date / Time Penicillins Allergy Rash Verified 05/24/24 22:59 Review of Systems 2 Review of Systems: Constitutional : No Weight loss, No Fever, No Chills, No Night Sweats, No Fatigue, No Malaise ENT/Mouth : Complaining of left ear discomfort, sensation of a bug crawling in the ear, No Hearing loss, No Ear Pain, No Nasal Congestion, No Sinus Pain, No Hoarseness, No sore throat, No Rhinorrhea, No Swallowing Difficulty Eyes: No Eye Pain, No Swelling, No Redness, No Foreign Body, No Discharge, No Vision Changes Cardiovascular : No Chest Pain, No SOB, No Dyspnea on Exertion, No Orthopnea, No Edema, No Palpitations Respiratory : No Cough, No Sputum, No Wheezing, No Smoke Exposure, No Dyspnea Gastrointestinal : No Nausea, No Vomiting, No Diarrhea, No Constipation, No abdominal Pain, No Hematochezia, No Melena Genitourinary : no irregular bleeding, No Dysuria, No Urinary Frequency, No Hematuria, No Urinary Incontinence, No Urgency, No Flank Pain, No Urinary Flow Changes, No Hesitancy Musculoskeletal : No joint pain, No Myalgias, No Joint Swelling Skin : No Skin Lesions, No rash Neuro : No Weakness, No Numbness, No Paresthesias, No Loss of Consciousness, complaining of dizziness explained as unsteady, No Headache Psych : No Anxiety/Panic, No Depression, No SI/HI/AH/VH, No Social Issues, Heme/Lymph: No Bruising, No Bleeding,No Lymphadenopathy Endocrine : No Polyuria, No Polydipsia, No Temperature Intolerance [facility] Social History Social History Alcohol intake: current Alcohol intake frequency: holidays/special occasions only Patient Tobacco Use Status: Never used Tobacco Use of substances other than those prescribed or required for medical reasons: No Advance Directives: No Advance Directives Information Provided: No Do you have a plan to hurt others: No Plan Physical Exam ED Vital Signs: Vital Signs - 24 hr 05/24/24 17:20 05/24/24 22:19 05/24/24 22:21 Temperature 97.1 F 97.8 F Pulse Rate 106 H 105 H 99 Respiratory Rate 18 17 Blood Pressure 166/89 H 153/88 H 158/92 H Pulse Oximetry 100 98 Oxygen Delivery Method Room Air Room Air 05/24/24 22:22 05/24/24 22:23 Temperature Pulse Rate 109 H 113 H Respiratory Rate Blood Pressure 151/92 H 131/93 H Pulse Oximetry Oxygen Delivery Method BMI result Body Mass Index 26.2 Const Other: Appearance: Alert. Oriented X3. No acute distress. Eyes: Pupils equal, round and reactive to light. ENT: Pharynx normal. Normal bilateral tympanic membranes, normal ear canals. No mastoid bone tenderness bilaterally Neck: Normal inspection. Neck supple. No lymph nodes noted. No crepitus CVS: Normal heart rate and rhythm. Pulses normal. Normal S1 and S2 Respiratory: No respiratory distress. Breath sounds normal. No Wheezing. No rales Abdomen: Soft and nontender. No rigidity. No distention. Skin: Skin warm and dry. Normal skin color. Normal skin turgor. Extremities: No lower extremity edema. No Lacerations. No Rash Neuro: Oriented X 3. No motor deficit. No sensory deficit. Moving all extremities. No slurred speech. CN 2 through 12 grossly intact Psych: calm, cooperative, normal affect NIH Stroke Scale Internal: Initial- Upon Arrival Level of Consciousness: Alert Level of Consciousness Questions: Answers both questions correctly Level of Consciousness Commands: Performs both tasks correctly Best Gaze: Normal Visual: No visual loss Facial Palsy: Normal Motor Arm (Right): No drift Motor Arm (Left): No drift Motor Leg (Right): No drift Motor Leg (Left): No drift Limb Ataxia: Absent Sensory: Normal Best Language: No aphasia Dysarthia: Normal Extinction and Inattention: No abnormality Score: 0 Medical Decision Making Medical Decision Making [facility] Narrative: My interpretation of labs: Normal hematology and chemistry CT scan does not show any acute abnormality Patient has steady gait I discussed with the patient that likely she had a viral infection affecting the left ear causing the lightheadedness For symptomatic discomfort, we will treat the left ear with acetic acid drops, dizzienss with meclizine TIA/CVA is not suspected, it has been several days, CT scan normal, symptoms intermittent, NIH score 0 Differential Diagnosis Differential Diagnoses: The differential diagnosis associated with the presentation includes (Otitis media, labyrinthitis, BPPV, Meniere's disease) Admission/Observation Consideration of admission/observation: Escalation of care including admission/observation considered (Given patient' length of symptoms, observation was considered) Lab Data [facility] Lab Attestation statement: I reviewed the patient's lab results. 05/24/24 17:51 05/24/24 17:51 Labs: Lab Results 05/24/24 Range/Units 17:51 WBC 4.5 L (4.8-10.8) X10*3/uL RBC 4.11 L (4.20-5.50) X10*6/uL Hgb 12.7 (12.0-16.0) g/dl Hct 37.0 (37.0-47.0) % MCV 90.0 (80.0-98.0) fL MCH 30.9 (27.0-33.0) pg MCHC 34.3 (31.0-35.0) g/dl RDW 12.1 (11.0-16.0) % Plt Count 265 (160-400) X10*3/uL MPV 8.8 L (9.4-12.3) fL Immature Gran % (Auto) 0.2 (0.0-0.4) % Neut % (Auto) 38.5 L (45-73) % Lymph % (Auto) 50.9 H (20-40) % Garza % (Auto) 9.1 (2-11) % Eos % (Auto) 0.4 (0-4) % Baso % (Auto) 0.9 (0-2) % Lymph # (Auto) 2.3 (1.2-4.9) X10*3/uL Garza # (Auto) 0.4 (0.1-1.2) X10*3/uL Eos # (Auto) 0.0 (0.0-0.4) X10*3/uL Baso # (Auto) 0.0 (0.0-0.2) X10*3/uL Abs Immat Gran (auto) 0.01 (0.00-0.03) X10*3/uL Absolute Neuts (auto) 1.7 L (2.0-8.3) x10*3/uL Absolute Nucleated RBC 0.000 (0.0-0.012) X10*3/uL Nucleated RBC % (auto) 0.0 (0.0-0.2) /100WBC Sodium 140 (135-145) mmol/L Potassium 4.0 (3.3-5.1) mmol/L Chloride 107 (96-108) mmol/L Carbon Dioxide 24 (22-29) mmol/L Anion Gap 13 (12-20) BUN 12 (9-16) mg/dL Creatinine 0.78 (0.5-1.4) mg/dL Estim Creat Clear Calc 66.1 Estimated GFR > 60 Random Glucose 101 (60-115) mg/dL Calcium 10.4 H (8.4-10.2) mg/dL Total Bilirubin 0.5 (0.0-1.0) mg/dL AST 26 (5-31) U/L ALT 27 (0-31) U/L Alkaline Phosphatase 76 (39-117) U/L Total Protein 8.4 H (6.5-8.0) g/dL Albumin 4.5 (3.5-5.0) g/dL Independent Interpretation I performed an independent interpretation of an: CT Scan Interpretation: No intra-axial mass, midline shift, hydrocephalus, or acute hemorrhage. No significant atrophy-like change or white matter disease. There is no sinus or mastoid fluid. The orbits are unremarkable. No skull fracture. IMPRESSION: 1. No acute intracranial findings. Critical Care Time Critical Care Time Critical Care Time: Yes Total Critical Care Time: 60 Attestation: I have personally provided critical care time. Time includes review of lab data, radiology results, discussion with consultants, and monitoring for potential decompensation. Intervention performed as documented. Discharge Plan Discharge Clinical Impression: Labyrinthitis Patient Disposition: Home, Self-Care Instructions: Labyrinthitis (ED) Additional Instructions: Please follow-up with your primary care physician tomorrow. If you have any worsening or new symptoms, please return to the emergency room or call 911 Prescriptions: New meclizine 50 mg tablet 50 mg PO BID PRN (Reason: dizziness) Qty: 10 0RF acetic acid 2 % solution 3 drp otic (ear) left Q6H Qty: 15 0RF Rx Instructions: apply to (cotton) wick; replace wick every 24 hours No Action metoprolol tartrate 25 mg tablet 12.5 mg PO DAILY Qty: 30 5RF aspirin 325 mg tablet 325 mg PO DAILY Qty: 90 0RF Print Language: Slovak
[2024-05-24 23:29] VITALS: BP 141/96; PULSE 79; RESP 16; TEMP 36.9; O2SAT 99
[2024-05-24] MEDS: Meclizine HCl 25 MG TABLET 50 MG PO (23:31)
== END 2024-05-24 23:46 | disposition home or self-care (01) ==
PROVIDERS: Emergency Provider Emergency Medicine; PCP Internal Medicine
DX: H83.02 Labyrinthitis, left ear (principal); R51.9 Headache, unspecified; H92.02 Otalgia, left ear; R42 Dizziness and giddiness; Z79.899 Other long term (current) drug therapy
CPT/HCPCS: 36415; 70450; 80053; 85025; 99284

== ENCOUNTER → 2024-05-24 17:36 | Outpatient (BNV) | payer MEDICAID, SELFPAY | PROVIDERS: PCP Internal Medicine; Visit Provider Nuclear Medicine | DX: R42 Dizziness and giddiness (principal) | CPT/HCPCS: 70450 ==

== ENCOUNTER 2024-08-01 12:32 | Outpatient (REF) | payer MEDICAID, SELFPAY ==
--- NOTE | ~2024-08-01 | MM_ITS ---
EXAMINATION: DXA BONE DENSITY AXIAL HISTORY: Estrogen deficiency TECHNIQUE: [employer] Dual energy absorptiometry (DEXA) of the lumbar spine, total left hip, and femoral neck was performed. COMPARISON: There are no prior studies for comparison. FINDINGS: The bone mineral density of the lumbar spine is 0.990 with a T-score of -1.6, and a Z-score of 0.0. This is indicative of osteopenia. The bone mineral density of the left total hip is 0.851 with a T-score of -1.2, and a Z-score of -0.1. This is indicative of osteopenia. The bone mineral density of the left femoral neck is 0.678 with a T-score of -2.6, and a Z-score of -1.1. This is indicative of osteoporosis. MM/XR DEXA axial skeleton IMPRESSION: Based on bone mineral density, and according to World Health Organization (WHO) criteria, the diagnosis is consistent with osteoporosis. All bone density values are in grams per centimeter squared (g/cm2). Statistically, 68% of repeat scans fall within 1 SD (+/- 0.010 g/cm2 for AP spine L1-L4) and 1 SD (+/- 0.012 g/cm2 for femur total) [employer] is a trademark of the [employer], a World Health Organization (WHO) Collaborating Center. Electronically signed by: Mike Emmanuel MD 08/01/2024 02:28 PM EDT
--- NOTE | ~2024-08-01 | MM_ITS ---
EXAMINATION: MM SCREENING DIGITAL BREAST TOMOSYNTHESIS, BILATERAL CLINICAL INFORMATION: Screening. Asymptomatic. COMPARISON: Mammography: Baseline. TECHNIQUE: Digital breast mammography with tomosynthesis is performed in both the craniocaudal and mediolateral oblique views along with computer-aided detection (CAD). FINDINGS: The breasts are heterogeneously dense, which may obscure small masses (ACR BI-RADS breast composition Category c). There are no significant masses, abnormal calcifications, or other abnormalities. MM/MM tomosynthesis screening BI IMPRESSION: No mammographic evidence of malignancy. ASSESSMENT: BI-RADS BI-RADS 1 - Negative RECOMMENDATION: Routine annual mammography screening. 1 year F/U This examination should not preclude the clinical evaluation of a suspicious palpable abnormality. This patient's information was entered into a reminder system with a target due date for their next mammogram. Electronically signed by: Autumn Jane DO 08/06/2024 01:42 PM EDT
== END 2024-08-01 12:33 | disposition home or self-care (01) ==
LOC: HO.MAMMO 12:32
PROVIDERS: PCP Internal Medicine; Visit Provider Internal Medicine
DX: Z12.31 Encounter for screening mammogram for malignant neoplasm of breast (principal); Z13.820 Encounter for screening for osteoporosis; Z78.0 Asymptomatic menopausal state
CPT/HCPCS: 77063; 77067; 77080

== ENCOUNTER → 2024-08-01 13:00 | Outpatient (BNV) | payer MEDICAID, SELFPAY | PROVIDERS: PCP Internal Medicine; Visit Provider Radiology Diagnostic Radiology | DX: E28.39 Other primary ovarian failure (principal) | CPT/HCPCS: 77080 ==

== ENCOUNTER 2025-04-01 11:01 | Outpatient (REF) | payer MEDICAID, SELFPAY ==
[2025-04-01 17:49] LABS: Appearance Urine Clear; Glucose Urine UA Negative (Negative); PH 5.0 (5.0-9.0); Specific Gravity - Urine 1.015 (1.005-1.025)
[2025-04-01 17:52] LABS: MANUAL DIFF FLAG NO
[2025-04-01 18:12] LABS: Hematocrit 37.3 % (37.0-47.0); Hemoglobin 12.3 g/dl (12.0-16.0); Imm Gran Abs Auto 0.01 X10*3/uL (0.00-0.03); Imm Gran Pct Auto 0.2 % (0.0-0.4); Lymphocytes Absolute Auto 1.7 X10*3/uL (1.2-4.9); Mean Corpuscular HGB Conc 33.0 g/dl (31.0-35.0); Mean Corpuscular Hemoglobin 30.9 pg (27.0-33.0); Mean Corpuscular Volume 93.7 fL (80.0-98.0); NRBC Abs Auto 0.000 X10*3/uL (0.0-0.012); NRBC Pct Auto 0.0 /100WBC (0.0-0.2); Platelet Count 290 X10*3/uL (160-400); Red Blood Count 3.98 X10*6/uL (4.20-5.50); White Blood Count 4.2 X10*3/uL (4.8-10.8)
[2025-04-01 18:36] LABS: Alanine Aminotransferase 31 U/L (0-31); Albumin Level 4.6 g/dL (3.5-5.0); Alkaline Phosphatase 94 U/L (39-117); Anion Gap 14 (12-20); Aspartate Amino Transferase 38 U/L (5-31); Blood Urea Nitrogen 12 mg/dL (9-16); Calcium 10.0 mg/dL (8.4-10.2); Carbon Dioxide 26 mmol/L (22-29); Chloride 104 mmol/L (96-108); Cholesterol 196 mg/dL (<200); Estimated Glomerular Filt Rate > 60; HDL Cholesterol 59 mg/dL (>40); Magnesium 2.2 mg/dL (1.6-2.6); Potassium 3.8 mmol/L (3.3-5.1); Sodium 140 mmol/L (135-145); Total Protein 7.9 g/dL (6.5-8.0); Triglycerides 350 mg/dL (<150)
[2025-04-01 18:56] LABS: Folate 16.7 ng/mL (> or = 4.0); Vitamin B12 504 pg/mL (200-900)
[2025-04-02 04:53] LABS: Syphilis Screen Nonreactive (Nonreactive)
[2025-04-02 05:23] LABS: HBS Num1 0.59 mIU/mL (0-7.99); HBsAGNum1 0.34 S/CO (0.00-0.99); HIV Num 1 0.06 S/CO (0.00-0.99); Hepatitis B Surface Antigen Negative (Negative); ~HepC Num1 0.10 S/CO (0.00-0.79); ~Hepatitis B Surface Antibody NONREACTIVE (Nonreactive); ~Hepatitis C Antibody Nonreactive (Nonreactive)
[2025-04-06 14:13] LABS: VITAMIN D (1,25 OH) D3 78 pg/mL; Vit D (1,25-Dihydroxy) Total 78 pg/mL (18-72); Vitamin D (1,25 OH) D2 <8 pg/mL
== END 2025-04-01 11:02 | disposition home or self-care (01) ==
LOC: HO.HKASLDS 11:01
PROVIDERS: PCP Student in an Organized Health Care Education/Training Program; Visit Provider Student in an Organized Health Care Education/Training Program
DX: Z13.9 Encounter for screening, unspecified (principal); I10 Essential (primary) hypertension; M18.0 Bilateral primary osteoarthritis of first carpometacarpal joints; M19.90 Unspecified osteoarthritis, unspecified site; H26.9 Unspecified cataract
CPT/HCPCS: 36415; 80053; 80061; 81003; 82607; 82652; 82746; 83036; 83735; 84443; 85025; 86706; 86780; 86803; 87340; 87389; 96127; 99202

== ENCOUNTER 2025-04-01 11:01 | Outpatient (AMB) | payer MEDICARE, MEDICAID, SELFPAY ==
--- NOTE | 2025-04-01 11:03 | A.OFFPC_ITS ---
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 Note: establish care Service Cleaner Required: No Service Cleaner Name: Doctor speaks citizen [place] Accompanied by: Spouse Allergies Penicillins Allergy (Verified 04/01/25 11:07) Rash Tobacco use date assessed: 04/01/25 Fall risk assessment: No Falls in past year Last assessed Fall Risk: 04/01/25 Dental Screening Dental Screen Date: 04/01/25 Did you have a dental visit in the last 12 months?: No Did you have a dental problem in the last 6 months where you did not have access to dental care?: No Was dental information given to patient?: No HPI HPI Comments History of Present Illness Details History of Present Illness The patient is a 65-year-old individual presenting to [facility] care and manage chronic conditions. Hypertension: The patient reports a history of high blood pressure and is currently taking amlodipine and metoprolol. These medications were prescribed by a previous doctor who has since retired. Osteoporosis: The patient reports a diagnosis of osteoporosis. A bone scan was performed in the past, but the patient did not have follow-up. A weekly bisphosphonate was prescribed, but the patient is non-adherent and has the medication at home. Arthritis: The patient reports a diagnosis of arthritis and takes naproxen. Cataracts and Eye Health: The patient underwent cataract surgery in [place], [place]. A laser procedure was performed on the left eye about three weeks ago. There is a history of eye pain, which led to a hospital visit where the patient was informed of a risk of vision loss. Health Maintenance: The patient's last mammogram was recent and the results were normal. The patient has not had a colonoscopy and reports no family history of cancer. The last Pap smear was performed many years ago. Surgical History: - Cataract surgery in [place], [place] - Laser eye surgery, left eye Medications: - Amlodipine for hypertension - Metoprolol for hypertension - Atorvastatin - Naproxen - Bisfosfonate (weekly pill) for osteopo rosis, prescribed but not taken Social History: - The patient lives in [place]. - The patient lives with a partner and h as two children and a [id number] living nearby. - Reports poor sleep. - The patient's partner is present and a ssists with communication during the visit. - The patient resides [facility] that is equipped with safety features such as grab bars in the bathroom and an emergency alert system. Family History: - Denies any family history of cancer. Diagnostic Results: - Tests: - Mammogram: Reported as normal, performed recently. Past Medical History - Hypertension - Osteoporosis - Arthritis - Cataracts Health Maintenance - A request will be made for medical rec ords from the patient's previous provide r, Dr. Haile. - Order screening labs including CBC, co mprehensive metabolic panel, hemoglobin A1c, lipid panel, hepatitis B/C, HIV, magnesium, TSH, urinalysis, vitamin B12, folate, and vitamin D. - Order Cologuard test for colon cancer screening after discussing options; the patient prefers this over colonoscopy. - Pap smear for cervical cancer screenin g is overdue and will need to be addressed. - Schedule a follow-up appointment in tw o weeks to review all results. [facility] Medical History (Updated 04/01/25 @ 15:36 by Flaco Mitchell MD) Cataracts, bilateral Arthritis Osteoporosis Hypertension Osteoporosis screening Post-menopause Surgical History (Updated 04/01/25 @ 11:13 by Veto Vicente CMA) History of cataract surgery H/O section Family History (Updated 04/01/25 @ 11:14 by Veto Vicente CMA) Sister Hypertension Thyroid disease High cholesterol Social History (Updated 04/01/25 @ 11:14 by Veto Vicente CMA) Housing: Apartment Alcohol intake: current Alcohol intake frequency: holidays/special occasions only Patient Tobacco Use Status: Never used Tobacco e-Cigarette/Vaping Use: Never Used service: No Current occupational status: retired Current occupational exposures/hazards: No Cognitive needs: No Hearing needs: No Vision needs: Yes Questionnaire PHQ-9 Over the last 2 weeks, how often have you been bothered by any of the following problems? 1. Little interest or pleasure in doing things: not at all 2. Feeling down, depressed, or hopeless: not at all 3. Trouble falling or staying asleep, or sleeping too much: not at all 4. Feeling tired or having little energy: several days 5. Poor appetite or overeating: not at all 6. Feeling bad about yourself - or that you are a failure or have let yourself or your family down: not at all 7. Trouble concentrating on things, such as reading the newspaper or watching television: not at all 8. Moving or speaking so slowly that other people could have noticed. Or the opposite - being so fidgety or restless that you have been moving around a lot more than usual: not at all 9. Thoughts that you would be better off or of hurting yourself in some way: not at all Total score: 1 Depression Screening Interpretation: Negative Depression Screening Done: Yes 81924 - PHQ-9 Billing: Yes Source: Developed by Drs. Mike Coker, Dianne Gutierrez, Shoaib Peck and colleagues, with an educational lacie from [employer]. Thrive Questionnaire Date Thrive assessed: 04/01/25 I am a: Parent/Caregiver What is your living situation today?: I have a steady place to live Within the past 12 months, did the food you bought not last and you didn't have the money to get more?: Never true Within the past 12 months, did you worry whether your food would run out before you got money to buy more?: Never true Do you have trouble paying for medicines?: No Do you have trouble getting transportation to medical appointments?: No Do you have trouble paying your heating and electricity bill?: No Do you have trouble taking care of your child, family member or friend?: No Are you currently unemployed and looking for a job?: I choose not to answer this question Are you interested in more education?: No Please select the resources that you would like help with: None Currently or been in a relationship where the following occur: No concerns reported THRIVE Score: 0 AUDIT C Alcohol Use Questionnaire (AUDIT-C) 1. How often do you have a drink containing alcohol?: 2-4 times a month 2. How many drinks containing alcohol do you have on a typical day when you are drinking?: 3 or 4 3. How often do you have six or more drinks on one occasion?: Monthly Total Score: 5 JOSEFINA-7 AMB Questionnaire JOSEFINA-7 Date JOSEFINA - 7 assessed: 04/01/25 Feeling nervous, anxious, or on edge: 0 = Not at all Not being able to stop or control worryin = Not at all Worrying too much about different things: 0 = Not at all Trouble relaxin = Several days Being so restless that it is hard to sit still: 0 = Not at all Becoming easily annoyed or irritable: 0 = Not at all Feeling afraid as if something awful might happen: 0 = Not at all Total JOSEFINA-7 score (0-4 normal; 5-9 mild; 10-14 moderate; 15-21 severe): 1 Source: Developed by Drs. Mike Coker, Dianne Gutierrez, Shoaib Peck and colleagues, with an educational lacie from [employer]. JOSEFINA-7 Assessment Billing JOSEFINA-7 Assessment Tool: JOSEFINA-7 Assessment 36406 Review of Systems Narrative Review of Systems - General: Denies anything specific bothering the patient when asked. - Constitutional: Reports sleeping poorly. - Musculoskeletal: Reports foot pain. - Gastrointestinal: Reports intermittent nausea. - Eyes: History of cataracts, eye surgery, and eye pain. Denies blindness. 10-point ROS reviewed and negative except as noted in HPI Physical exam (Primary Care) Vital Signs: Last Vital Signs Temp 98.3 F 04/01/25 11:15 Pulse 82 04/01/25 11:15 Resp 18 04/01/25 11:15 BP 132/72 04/01/25 11:15 Pulse Ox 98 04/01/25 11:15 Oxygen Delivery Method Room Air 04/01/25 11:15 BMI result Body Mass Index 30.3 Tobacco/Smoking Status: Tobacco use Status Tobacco use date assessed 04/01/25 04/01/25 11:17 Patient Tobacco Use Status Never used Tobacco 04/01/25 11:14 e-Cigarette/Vaping Use Never Used 04/01/25 11:17 PHQ-9: PHQ-9 Score PHQ-9: Total score 1 04/01/25 11:05 Depression Screening Interpretation: Negative Thrive Assessment: Date of Thrive Assessment Date Thrive assessed 04/01/25 04/01/25 11:05 Currently or been in a relationship where the following occur: No concerns reported Narrative Physical Exam General: Well-appearing, in no acute distress. Vital signs: Within normal limits. HEENT: Normocephalic, atraumatic. PERRLA, EOMI. Conjunctiva clear, sclera anicteric. Oropharynx clear, mucous membranes moist. TMs intact bilaterally. Recent laser procedure on the left eye. Neck: Supple, no lymphadenopathy, no thyromegaly, no JVD or carotid bruits. Cardiovascular: RRR, normal S1/S2, no murmurs, rubs, or gallops. Peripheral pulses 2+ and symmetric. No edema. Respiratory: Lungs clear to auscultation bilaterally, no wheezes, rales, or rhonchi. Normal effort. Abdomen: Soft, non-tender, non-distended. Normoactive bowel sounds. No hepatosplenomegaly, no masses. MSK: Full range of motion, no joint swelling or deformity. Normal gait. Reports arthritis and osteoporosis. Skin: Warm, dry, intact. No rashes, lesions, or pallor. Neuro: Alert and oriented x3. Cranial nerves II-XII intact. Strength 5/5 throughout. Sensation intact. Reflexes 2+ symmetric. Normal coordination and gait. Psych: Appropriate mood and affect. Normal judgment and insight. Coding Level of Care Code New Pt Level 4 (95813) Diagnoses Hypertension I10 Osteoporosis M81.0 Arthritis M19.90 Cataracts, bilateral H26.9 Additional Codes JOSEFINA-7 Assessment Billing - JOSEFINA-7 Assessment Tool: JOSEFINA-7 Assessment 44078 ([id number]) PHQ-9 - 22904 - PHQ-9 Billing: Yes ([id number]) Assessment & Plan Assessment & Plan (1) Hypertension: Code(s): I10 - Essential (primary) hypertension Category: Medical (2) Osteoporosis: Code(s): M81.0 - Age-related osteoporosis without current pathological fracture Category: Medical (3) Arthritis: Code(s): M19.90 - Unspecified osteoarthritis, unspecified site Category: Medical (4) Cataracts, bilateral: Code(s): H26.9 - Unspecified cataract Category: Medical Plan Consent The risks, benefits, and alternatives for colon cancer screening were discussed, including a colonoscopy versus a Cologuard test. The patient consented to proceed with the Cologuard test. The importance of treating osteoporosis was discussed, highlighting the risk of a fatal hip fracture with a fall if the condition is left untreated. Consent was obtained for a bone scan to evaluate bone density. Consent for lab work was also obtained. Patient was informed and verbally consented to the use of an ambient scribe for clinic note documentation during this visit. Plan 1. Hypertension - Continue amlodipine and metoprolol as prescribed. 2. Osteoporosis - Order a bone scan to assess bone density, referring the patient to [facility]. - Counseled the patient on the importance of taking medication for osteoporosis to prevent fractures, particularly hip fractures, which can be fatal. - Instructed the patient to bring all medications, including the prescribed bisphosphonate, to the next visit. Discussion Notes I met with this 65-year-old individual who is establishing care with me today. We discussed the patient's medical history, including hypertension, arthritis, and osteoporosis. I explained the plan to order a comprehensive set of baseline labs and to request records from the previous provider, Dr. Haile. I reviewed the options for colorectal cancer screening, which included a colonoscopy or the Cologuard test. After explaining the Cologuard process, the patient agreed to this option. I ordered a bone density scan to assess the patient's osteoporosis and stressed the importance of treatment to prevent serious fractures, noting that hip fractures can be fatal in older adults. I advised the patient to bring in the prescribed medication for osteoporosis to the next appointment. We will follow up in two weeks to review the results of all the tests. Patient Instructions - You will have your blood drawn here in the clinic today. - A Cologuard kit will be mailed to you for colon cancer screening. Follow the instructions to collect the sample and mail it back in the provided box. - You have been given a paper referral for a bone scan. Please call Steven griffith to schedule your appointment. - Please bring all of your current medications, including the pills for your bones, to your next visit. - Please schedule a follow-up appointment in two weeks to go over your test results. Medical Decision Making The patient is a 65-year-old individual presenting for establishment of primary care. The patient has several chronic conditions, including hypertension, arthritis, and osteoporosis. The immediate goal is to obtain baseline health data, evaluate the status of these chronic issues, and ensure health screenings are up-to-date. Comprehensive lab work was ordered to assess for anemia, infection, renal and hepatic function, glycemic control, dyslipidemia, common viral infections, and potential nutritional deficiencies. Given the patient's age and no prior screening, Cologuard was chosen as a non-invasive colorectal cancer screening method after discussing the alternative of a colonoscopy. A bone density scan is indicated due to the patient's history of osteoporosis and non-adherence to prescribed bisphosphonate therapy; the significant risk of fragility fractures, especially of the hip, was a winters consideration. Continuity of care will be aided by obtaining prior medical records. A follow-up visit in two weeks is planned to review all results and formulate a long-term care plan. Total Time Statement 30 MIN Total time spent caring for the patient today includes pre-visit chart review, documentation, review of laboratory and diagnostic imaging results, medication reconciliation, medically necessary evaluation, counseling on diagnoses, care coordination, ordering appropriate tests and medications, review of tests performed by other providers, reporting test results to the patient, and communication with other healthcare providers. Orders: Orders Hepatitis B Surface Antigen Today Z13.9 - Encounter for screening, unspecified Syphilis Screen Today Z13.9 - Encounter for screening, unspecified Hepatitis C Antibody Today Z13.9 - Encounter for screening, unspecified TSH reflex Free T4 Today Z13.9 - Encounter for screening, unspecified UA CC w/rflx Micro + Cult Today Z13.9 - Encounter for screening, unspecified Lipid Panel Today Z13.9 - Encounter for screening, unspecified Hemoglobin A1c Today Z13.9 - Encounter for screening, unspecified Vitamin D 1,25 dihydroxy Today Z13.9 - Encounter for screening, unspecified Hepatitis B Surface Antibody Today Z13.9 - Encounter for screening, unspecified Complete Blood Count Auto Diff Today Z13.9 - Encounter for screening, unspecified Comprehensive Met. Panel Today Z13.9 - Encounter for screening, unspecified HIV Ab/Ag Today Z13.9 - Encounter for screening, unspecified Vitamin B12 and Folate Today Z13.9 - Encounter for screening, unspecified Magnesium Today Z13.9 - Encounter for screening, unspecified XR DEXA axial skeleton Today Z13.820 - Encounter for screening for osteoporosis, Z78.0 - Asymptomatic menopausal state Referrals Cologuard Test Z12.11 - Encounter for screening for malignant neoplasm of colon, Z12.12 - Encounter for screening for malignant neoplasm of rectum
[2025-04-01 11:15] VITALS: BP 132/72; PULSE 82; RESP 18; TEMP 36.8; O2SAT 98; BMI 30.3
== END 2025-04-01 11:41 | disposition home or self-care (01) ==
LOC: HO.HMCFMS 11:02
PROVIDERS: PCP Internal Medicine; Visit Provider Student in an Organized Health Care Education/Training Program
DX: I10 Essential (primary) hypertension (principal); M81.0 Age-related osteoporosis without current pathological fracture; M19.90 Unspecified osteoarthritis, unspecified site; H26.9 Unspecified cataract